=== PATIENT | male | born 1985 | race Caucasian/White ===

== ENCOUNTER → 2024-09-02 11:24 | Outpatient (REF) | payer BC, SELFPAY | LOC: HWRAD 11:24 | PROVIDERS: ATTENDING PHYSICIAN Chiropractor; FAMILY PHYSICIAN Nurse Practitioner | DX: M54.51 Vertebrogenic low back pain (principal) | CPT/HCPCS: 72110 ==

== ENCOUNTER → 2024-12-10 14:06 | Outpatient (REF) | payer BC, SELFPAY | LOC: HWRAD 14:06 | PROVIDERS: ATTENDING PHYSICIAN Otolaryngology Facial Plastic Surgery; FAMILY PHYSICIAN Nurse Practitioner | DX: J32.0 Chronic maxillary sinusitis (principal); J33.0 Polyp of nasal cavity; J34.2 Deviated nasal septum | CPT/HCPCS: 70486 ==